=== PATIENT | female | born 1985 | race Caucasian/White ===

== ENCOUNTER 2018-07-20 05:07 | Emergency (ER) | payer BC ==
[~2018-07-20] VITALS: Ht 157.5 cm; Wt 70.3 kg
[2018-07-20 05:20] VITALS: BP 135/89
--- NOTE | 2018-07-20 05:20 | NUR ---
Pt walked in c/o dizziness, nausea. Pt reports it started when she woke up this morning, she felt like "the room was spinning." Pt also states "I feel like I have UTI." Pt is A, O4, walks with steady gait without difficulty. Urine collected and sent to lab. Awaiting MD to evaluate pt at [facility].
[2018-07-20 05:52] LABS: APPEARANCE,URINE CLOUDY (CLEAR); BILIRUBIN,URINE NEGATIVE (NEGATIVE); BLOOD, URINE SMALL Ery/uL (NEGATIVE); COLOR,URINE YELLOW (YELLOW); KETONES,URINE NEGATIVE (NEGATIVE); LEUKOCYTE ESTERASE ,URINE MODERATE (NEGATIVE); NITRITE, URINE NEGATIVE (NEGATIVE); PROTEIN,URINE NEGATIVE (NEGATIVE); UGLUCOSE NEGATIVE (NEGATIVE); UROBILINOGEN,URINE 0.2 EU/dL (0.2)
[2018-07-20] MEDS ORDERED: TDAP [DIPH/PERTUSSIS/TET] 0.5 ML VIAL IM ONE ×2 (06:20→06:30)
--- NOTE | 2018-07-20 06:27 | NUR ---
Pt refused tDap.
--- NOTE | 2018-07-20 06:35 | NUR ---
Pt initially refused tDap, therefore, shot was documented as non-administered. However, spoke with the pt and she agreed to receive it. tDap 0.5 ml IM given to Left deltoid. Addendum: 07/20/18 at 0729 by [email or web address] tdAP LOT # [id number], Exp Date 07/24/20, lt marks
--- NOTE | 2018-07-20 06:45 | NUR ---
No adverse reaction noted from tDap.
--- NOTE | 2018-07-20 06:49 | NUR ---
Patient discharged to home in stable condition. Written and verbal after care instructions given. Patient verbalizes understanding of instruction.Pt. ambulatory with a steady gait
[2018-07-20 07:00] LABS: BACTERIA,URINE Few /HPF (None Seen); RBC,URINE 0-2 /HPF (0-2); SQUAMOUS EPITHELIAL CELL,UR Moderate /HPF (None Seen)
== END 2018-07-20 06:48 | disposition home or self-care (01) ==
LOC: ER 05:13
DX: S61.411A Laceration without foreign body of right hand, initial encounter (principal); H81.399 Other peripheral vertigo, unspecified ear; Z98.890 Other specified postprocedural states; Z88.0 Allergy status to penicillin; W26.8XXA Contact with other sharp object(s), not elsewhere classified, initial encounter; Y93.89 Activity, other specified; Y92.89 Other specified places as the place of occurrence of the external cause; Y99.8 Other external cause status
CPT/HCPCS: 81001; 84703; 99283; A4606; Z7610; 81000-TC; 90715